=== PATIENT | female | born 1950 | race African-American/Black ===

== ENCOUNTER 2016-12-17 19:20 | Emergency (ER) | payer OTHER ==
[~2016-12-17] VITALS: Ht 157.5 cm; Wt 79.4 kg
[2016-12-17 20:02] LABS: BASO # 0.1 x10^3/uL (0.0-0.2); BASO % 1 % (0-3); EOS % 1 % (0-3); HEMATOCRIT 33.6 % (36.0-47.0); HEMOGLOBIN 10.3 g/dL (12.0-15.5); LYMPH # 0.9 x10^3/uL (1.0-4.8); LYMPH % 10 % (24-48); MEAN CORPUSCULAR HEMOGLOBIN 26 pg (25-35); MEAN CORPUSCULAR HGB CONC 31 g/dL (31-37); MEAN CORPUSCULAR VOLUME 85 fL (79-100); MONO % 5 % (0-9); NEUT % 84 % (31-73); PLATELET COUNT 269 x10^3/uL (140-400); RED BLOOD COUNT 3.96 x10^6/uL (3.50-5.40); RED CELL DISTRIBUTION WIDTH 14.3 % (11.5-14.5)
[2016-12-17 20:17] LABS: CALCIUM 9.2 mg/dL (8.5-10.1); CREATININE 1.5 mg/dL (0.6-1.0); POTASSIUM 4.4 mmol/L (3.5-5.1)
[2016-12-17 20:52] LABS: NEG OBC FOB NEG; POS OBC FOB POS
--- NOTE | 2016-12-17 20:57 | PHYS DOC ---
Past Medical History Past Medical History: Diabetes-Type II, Hypertension, Other Additional Past Medical Histor: RA Past Surgical History: Hysterectomy Alcohol Use: None Drug Use: None Adult General Chief Complaint Chief Complaint: RECTAL BLEED [facility] HPI This is a 66-year-old female presents with concern for rectal bleeding by EMS. Patient lives alone and has a home health aide that comes into the home and noticed significant amount of blood in her briefs. There is concern for rectal bleeding. Patient does states that she has history of constipation but cannot when she last had a bowel movement. Patient is on stool softeners. Patient has history of hysterectomy. She has history of hypertension and diabetes type 2. She complains of vague lower abdominal pain as well. Patient does not appear to be in any acute distress at this time. She denies any chest pain or shortness breath. She denies any dizziness or lightheadedness. Review of Systems Review of Systems Constitutional: Denies fever or chills [] Eyes: Denies change in visual acuity, redness, or eye pain [] HENT: Denies nasal congestion or sore throat [] Respiratory: Denies cough or shortness of breath [] Cardiovascular: No additional information not addressed in HPI [] GI: Has abdominal pain, denies nausea, denies vomiting, denies bloody stools or diarrhea [] : Denies dysuria or hematuria [] Musculoskeletal: Denies back pain or joint pain [] Integument: Denies rash or skin lesions [] Neurologic: Denies headache, focal weakness or sensory changes [] Endocrine: Denies polyuria or polydipsia [] Allergies Allergies Allergies Coded Allergies Type Severity Reaction Last Updated Verified Penicillins Allergy Intermediate 12/17/16 Yes Sulfa (Sulfonamide Antibiotics) Allergy Intermediate 12/17/16 Yes Physical Exam Physical Exam Constitutional: Well developed, well nourished, no acute distress, non-toxic appearance. [] HENT: Normocephalic, atraumatic, bilateral external ears normal, oropharynx moist, no oral exudates, nose normal. [] Eyes: PERRLA, EOMI, conjunctiva normal, no discharge. [] Neck: Normal range of motion, no tenderness, supple, no stridor. [] Cardiovascular:Heart rate regular rhythm, no murmur [] Lungs & Thorax: Bilateral breath sounds clear to auscultation [] Abdomen: Bowel sounds normal, soft, no tenderness, no masses, no pulsatile masses. [] : Vaginal exam reveals a scant amount of blood in the vaginal vault. There is no obvious skin tear lacerations seen but exam is limited secondary to the patient's pain with speculum insertion. Rectal: Rectal exam reveals stool in the rectum but no obvious hemorrhoid or mass. There is no obvious blood. Skin: Warm, dry, no erythema, no rash. [] Back: No tenderness, no CVA tenderness. [] Extremities: No tenderness, no cyanosis, no clubbing, ROM intact, no edema. [] Neurologic: Alert and oriented X 3, normal motor function, normal sensory function, no focal deficits noted. [] Psychologic: Affect normal, judgement normal, mood normal. [] Current Patient Data Vital Signs Vital Signs Date Time Temp Pulse Resp B/P Pulse Ox O2 Delivery O2 Flow Rate FiO2 12/17/16 19:40 99.9 98 16 175/81 96 Room Air 99.9 Lab Values Laboratory Tests Test 12/17/16 19:40 12/17/16 19:50 White Blood Count 9.0x10^3/uL (4.0-11.0) Red Blood Count 3.96x10^6/uL (3.50-5.40) Hemoglobin 10.3g/dL (12.0-15.5) L Hematocrit 33.6% (36.0-47.0) L Mean Corpuscular Volume 85fL (79-100) Mean Corpuscular Hemoglobin 26pg (25-35) Mean Corpuscular Hemoglobin Concent 31g/dL (31-37) Red Cell Distribution Width 14.3% (11.5-14.5) Platelet Count 269x10^3/uL (140-400) Neutrophils (%) (Auto) 84% (31-73) H Lymphocytes (%) (Auto) 10% (24-48) L Monocytes (%) (Auto) 5% (0-9) Eosinophils (%) (Auto) 1% (0-3) Basophils (%) (Auto) 1% (0-3) Neutrophils # (Auto) 7.6x10^3uL (1.8-7.7) Lymphocytes # (Auto) 0.9x10^3/uL (1.0-4.8) L Monocytes # (Auto) 0.4x10^3/uL (0.0-1.1) Eosinophils # (Auto) 0.1x10^3/uL (0.0-0.7) Basophils # (Auto) 0.1x10^3/uL (0.0-0.2) Sodium Level 141mmol/L (136-145) Potassium Level 4.4mmol/L (3.5-5.1) Chloride Level 107mmol/L (98-107) Carbon Dioxide Level 24mmol/L (21-32) Anion Gap 10 (6-14) Blood Urea Nitrogen 45mg/dL (7-20) H Creatinine 1.5mg/dL (0.6-1.0) H Estimated GFR (Cockcroft-Gault) 35.0 Glucose Level 151mg/dL (70-99) H Calcium Level 9.2mg/dL (8.5-10.1) Stool Occult Blood Negative (NEG) Laboratory Tests 12/17/16 19:40 Laboratory Tests 12/17/16 19:40 EKG EKG [] Radiology/Procedures Radiology/Procedures [] Course & Med Decision Making Course & Med Decision Making Pertinent Labs and Imaging studies reviewed. (See chart for details) 66 yo old female who has ongoing bleeding likely from a vaginal source has a fecal occult sample that is negative for blood. Her CBC and BMP are fairly unremarkable other than a slightly elevated BUN/creatinine. No prior blood work to compare to. Patient denies any significant lightheadedness or dizziness. Her vital signs have been unremarkable here. Due to the fact that she is having some vague abdominal pain a CT of her abdomen and pelvis without contrast was also obtained. Urinalysis will be obtained as well. Ultimately her care will be signed out to Dr. Higgins who was instructed to either admit if the CT has any significant findings or to discharge if negative. I also updated the family about these plans and they are very agreeable to this. Dragon Disclaimer Dragon Disclaimer This electronic medical record was generated, in whole or in part, using a voice recognition dictation system. Departure Departure Impression: Primary Impression: Vaginal bleeding Disposition: 01 HOME, SELF-CARE Admitting Physician: Other Condition: STABLE Patient Instructions: Vaginitis, Atrophic, [id number] Additional Instructions: Please have the patient reevaluated for her ongoing vaginal bleeding. Return to the ER immediately if her bleeding should worsen or if she develops any lightheadedness or dizziness or worsening abdominal pain. Follow up with your primary doctor in the next 2-3 days. TAMIA RAMSEY DO Dec 17, 2016 20:57
[2016-12-17 21:34] LABS: BILIRUBIN,URINE NEGATIVE (NEG); GLUCOSE,URINE NEGATIVE (NEG); NITRITE,URINE NEGATIVE (NEG); PROTEIN,URINE >=300 mg/dL (NEG-TRACE); UROBILINOGEN,URINE 0.2 mg/dL (0.2 mg/dL)
[2016-12-17 21:38] LABS: BACTERIA,URINE MANY /HPF (0-FEW); RBC,URINE OCC /HPF (0-2); SQUAMOUS EPITHELIAL CELL,UR OCC /LPF
--- NOTE | 2016-12-17 22:10 | RAD ---
PQRS STATEMENT One or more of the following individualized dose reduction techniques were utilized for this study: 1.Automated exposure control. 2.Adjustment of the mA and/orkVaccording to patient size. 3.Use of iterative reconstruction technique CT ABDOMEN/PELVIS Indication:NO PRIORS..PT C/O CONSTAPATION WITH RECTAL BLEEDING Reason: abdominal pain / Spl. Instructions: / History: Technique: Multiple contiguous axial images were obtained through the abdomen and pelvis. Coronal reformations were created. Comparison:None Findings: The heart is enlarged. Atelectasis is noted in the lung bases. Evaluation of the abdominal viscera is limited in the absence of IV contrast. The liver and spleen are normal in size. Surgical clips are noted in the upper abdomen. The gallbladder appears to be surgically absent. The unopacified pancreas and adrenal glands are unremarkable. The kidneys demonstrate no hydronephrosis. There is a 2 millimeter nonobstructive calculus in the upper pole of the left kidney. The right kidney demonstrates presence of a 3.9 centimeter cortical cyst. The abdominal aorta is normal in caliber. Atherosclerotic calcifications are noted. The appendix is not identified. Pelvic structures are poorly visualized due to dense streak artifact from the bilateral metallic hip arthroplasties. There is a rectal fecal impaction. Bowel loops are normal in caliber. No destructive osseous lesion is identified. Impression: - Rectal fecal impaction. - Cardiomegaly. - No ascites or inflammatory mass. - 2 millimeter nonobstructive calculus of the left kidney Electronically signed by: Alex Thorne (Dec 17, 2016 22:09:42)
[2016-12-17] MEDS ORDERED: SENN-37 PO (22:27)
[2016-12-17] MEDS ORDERED: POLY17PO5 PO (22:27)
[2016-12-17 23:00] VITALS: BP 161/65
== END 2016-12-17 23:32 | disposition home or self-care (01) ==
LOC: ER 19:20
DX: N93.9 Abnormal uterine and vaginal bleeding, unspecified (principal); K59.00 Constipation, unspecified; K62.5 Hemorrhage of anus and rectum; E11.9 Type 2 diabetes mellitus without complications; I10 Essential (primary) hypertension; M06.9 Rheumatoid arthritis, unspecified; Z90.710 Acquired absence of both cervix and uterus; Z88.2 Allergy status to sulfonamides; Z88.0 Allergy status to penicillin
CPT/HCPCS: 36415; 74176; 80048; 81001; 82274; 85027; 87086; 99285-25